=== PATIENT | male | born 1960 | race Caucasian/White ===

== ENCOUNTER 2018-02-20 06:17 | Day surgery (SDC) | payer OTHER ==
[2018-02-20] MEDS ORDERED: MIDAZOLAM 1 MG/ML 2 ML INJ (07:43)
[2018-02-20] MEDS ORDERED: PROPOFOL 20 ML (07:43)
[2018-02-20] MEDS ORDERED: FENTAnyl 50 MCG/ML VIAL (07:43)
== END 2018-02-20 08:41 | disposition home or self-care (01) ==
LOC: GIL 06:17
DX: Z12.11 Encounter for screening for malignant neoplasm of colon (principal); K57.90 Diverticulosis of intestine, part unspecified, without perforation or abscess without bleeding; K64.8 Other hemorrhoids; I10 Essential (primary) hypertension
CPT/HCPCS: 45378